=== PATIENT | male | born 1940 | race Caucasian/White ===

== ENCOUNTER 2016-12-28 15:48 | Emergency (ER) | payer MEDICARE ==
[~2016-12-28] VITALS: Ht 170.2 cm; Wt 80.0 kg
[~2016-12-28 15:48] MED LIST: BAYER LOW81 MG PO; CIPRO XR500 M1 OR; COZAAR100 MG PO; DICLOFENAC50 MG PO; DILAUDID2 MG PO; LIPITOR80 MG PO; LORTAB 7.57.5 MG OR; LORTAB 7.57.5 MG PO; METFORMIN1000 MG PO; METFORMIN850 MG PO; METOPROLOL100 M1 PO; METOPROLOL50 M1 PO; NAPROSYN500 MG PO; PLAVIX75 MG PO
[2016-12-28 16:16] LABS: HEMATOCRIT 40.9 % (39.0-50.0); HEMOGLOBIN 14.1 g/dl (14.0-18.0); IMMATURE GRANULOCYTES 0.3 % (0.0-1.0); MEAN CELL VOLUME 92.7 fL CALC (80.0-100.0); MEAN CORPUSCULAR HGB CONC 34.5 g/L CALC (32.0-36.0); NEUT# 5.65 thou/uL (1.82-7.42); RED BLOOD COUNT 4.41 mill/uL (4.70-6.10)
[2016-12-28 16:33] LABS: ALBUMIN 4.3 g/dL (3.2-5.0); ALKALINE PHOSPHATASE 120 u/l (38-126); ANION GAP 19 (6-22 (CALC)); BILIRUBIN, TOTAL 0.4 mg/dL (0.0-1.4); BUN 18 mg/dL (8-23); BUN/CREATININE RATIO 17 (12-20 (CALC)); CALCIUM 9.9 mg/dL (8.4-10.2); CARBON DIOXIDE 23 mmol/l (22-30); CHLORIDE 104 mmol/l (95-108); CREATININE 1.1 mg/dL (0.7-1.3); GFR > 60 ML/MIN (>=60 (CALC)); GFR FOR AFR.AMER. > 60 ML/MIN (>=60 (CALC)); GLUCOSE 225 mg/dL (82-115); POTASSIUM 4.1 mmol/l (3.5-5.1); SGOT/AST 44 u/l (19-48); SGPT/ALT 32 u/l (11-66); SODIUM 141 mmol/l (137-146); TOTAL PROTEIN 7.6 g/dL (6.3-8.2)
[2016-12-28 16:44] LABS: MYOGLOBIN 64 ng/mL (0 - 121)
[2016-12-28] MEDS ORDERED: AMLODIPINE5 MG PO (17:39)
[2016-12-28 19:09] VITALS: BP 123/61
== END 2016-12-28 18:50 | disposition short-term general hospital (02) ==
LOC: ED 15:48
PROVIDERS: Emergency Medicine
DX: I21.4 Non-ST elevation (NSTEMI) myocardial infarction (principal); I25.10 Atherosclerotic heart disease of native coronary artery without angina pectoris; I10 Essential (primary) hypertension; Z95.5 Presence of coronary angioplasty implant and graft
CPT/HCPCS: J1650

== ENCOUNTER → 2018-11-15 | Outpatient (REF) | payer MEDICARE ==
[~2018-11-15] MED LIST changes: +AMLODIPINE5 MG PO
[2018-11-15 09:33] LABS: ANION GAP 14 (6-22 (CALC)); BUN 17 mg/dL (8-23); BUN/CREATININE RATIO 21 (12-20 (CALC)); CARBON DIOXIDE 26 mmol/l (22-30); CHLORIDE 105 mmol/l (95-108); CREATININE 0.8 mg/dL (0.7-1.3); GFR > 60 ML/MIN (>=60 (CALC)); GFR FOR AFR.AMER. > 60 ML/MIN (>=60 (CALC)); POTASSIUM 4.5 mmol/l (3.5-5.1); SODIUM 140 mmol/l (137-146)
== END | disposition home or self-care (01) ==
LOC: LAB 08:30
PROVIDERS: ATTEND Internal Medicine
DX: E11.42 Type 2 diabetes mellitus with diabetic polyneuropathy (principal)

== ENCOUNTER 2020-04-01 05:51 | Observation (INO) | payer MEDICARE ==
[~2020-04-01] VITALS: Ht 170.2 cm; Wt 77.2 kg
--- NOTE | 2020-04-01 05:51 | NUR ---
PATIENT TO ROOM 13 VIA WHEELCHAIR. PATIENT STATES INTERMITTENT CHEST PAIN SINCE 1800 YESTERDAY. STATES TOOK TWO NTG AT 0000, AND 0200 WITH NO RELIEF. STATES NO PAIN AT PRESENT. STATES AT WORST PAIN WAS A 7 ON 1-10 PAIN SCALE. UNDRESSED INTO A GOWN, EKG COMPLETED. PATIENT PLACED ON MONITOR AND TRIAGE COMPLETED AT BEDSIDE.
--- NOTE | 2020-04-01 06:08 | NUR ---
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
[2020-04-01 06:17] LABS: HEMATOCRIT 40.4 % (39.0-50.0); HEMOGLOBIN 13.4 g/dl (14.0-18.0); IMMATURE GRANULOCYTES 0.3 % (0.0-5.0); MEAN CELL VOLUME 93.3 fL CALC (80.0-100.0); MEAN CORPUSCULAR HGB 30.9 pG CALC (26.0-32.0); MEAN CORPUSCULAR HGB CONC 33.2 g/dL CAL (32.0-36.0); NEUT# 3.24 thou/uL (1.82-7.42); RED BLOOD COUNT 4.33 mill/uL (4.70-6.10); RED CELL DISTRI WIDTH 12.7 % (11.5-15.5)
[2020-04-01] MEDS ORDERED: ASPIRIN ADULT L81 MG PO (06:27)
[2020-04-01 06:29] LABS: ALBUMIN 4.3 g/dL (3.2-5.0); ALKALINE PHOSPHATASE 86 u/l (38-126); ANION GAP 10 (6-22 (CALC)); BILIRUBIN, TOTAL 0.4 mg/dL (0.0-1.4); BUN 19 mg/dL (8-23); BUN/CREATININE RATIO 25 (12-20 (CALC)); CARBON DIOXIDE 21 mmol/l (22-30); CHLORIDE 108 mmol/l (95-108); CREATININE 0.8 mg/dL (0.7-1.3); GFR > 60 ML/MIN (>=60 (CALC)); GFR FOR AFR.AMER. > 60 ML/MIN (>=60 (CALC)); POTASSIUM 4.2 mmol/l (3.5-5.1); SGOT/AST 27 u/l (19-48); SODIUM 135 mmol/l (137-146); TOTAL PROTEIN 7.3 g/dL (6.3-8.2)
--- NOTE | 2020-04-01 07:00 | NUR ---
RECEIVED REPORT FROM CHING RN. PT RESTING ON STRETCHER, AT BEDSIDE. DENIES ANY NEEDS AT THIS TIME.
[2020-04-01 08:00] VITALS: BP 143/86
--- NOTE | 2020-04-01 09:20 | NUR ---
PT C/O SHOOTING PAIN ACROSS MID CHEST 01/01 THAT LASTED LESS THAN ONE MINUTE. STATES RESOLVED AT THIS TIME. VSS. REPEAT EKG PERFORMED AND SCANNED TO RECORD SPOKE WITH WILLIS DIAZ APRN, NEW ORDERS RECIEVED AND PRIMARY NURSE UPDATED.
--- NOTE | 2020-04-01 10:08 | NUR ---
LAB AT BEDSIDE. PT DENIES CHEST PAIN AT THIS TIME. WILL CONTINUE TO MONITOR.
--- NOTE | 2020-04-01 11:13 | NUR ---
PT note Patient is screened for intervention and it does not appear he has any PT needs at this time. He may benefit from outpatient cariopulmonary rehab on DC if MD agrees
--- NOTE | 2020-04-01 11:41 | NUR ---
AMBULATED TO BATHROOM WITH STEADY GAIT. DENIES CHEST PAIN AT THIS TIME.
[2020-04-01 12:00] VITALS: BP 128/64
--- NOTE | 2020-04-01 12:15 | NUR ---
DR CAMPOS AT BEDSIDE
--- NOTE | 2020-04-01 12:17 | NUR ---
DR CAMPOS AT BEDSIDE. NEW ORDERS RECEIVED.
--- NOTE | 2020-04-01 14:45 | NUR ---
Discharge instructions given. Patient verbalizes understanding of same. Discharged in stable condition via Ambulatory to Home with spouse. All belongings sent with pt. PT AND SPOUSE AMBULATED OUT OF ER WITH STEADY GAIT.
--- NOTE | 2020-04-01 15:20 | NUR ---
PT TRANSPORTED TO ICU WITH PERMIT SPECIALIST IN PLACE; RT AT BEDSIDE; REPORT GIVEN TO LASHAE TRAMMELL
== END 2020-04-01 14:45 | disposition home or self-care (01) ==
LOC: ED 05:51 → ED-I 06:33 → ED 06:45 → ED-I 06:46
PROVIDERS: Family Medicine; ADMIT Internal Medicine; ATTEND Internal Medicine
DX: R07.9 Chest pain, unspecified (principal); I25.10 Atherosclerotic heart disease of native coronary artery without angina pectoris; E11.9 Type 2 diabetes mellitus without complications; I10 Essential (primary) hypertension; Z95.5 Presence of coronary angioplasty implant and graft; Z79.84 Long term (current) use of oral hypoglycemic drugs; Z79.02 Long term (current) use of antithrombotics/antiplatelets; Z79.82 Long term (current) use of aspirin; Z20.828 Contact with and (suspected) exposure to other viral communicable diseases

== ENCOUNTER 2022-09-27 11:05 | Emergency (ER) | payer MEDICARE ==
[~2022-09-27] VITALS: Ht 167.6 cm; Wt 69.2 kg
[~2022-09-27 11:05] MED LIST changes: +ASPIRIN ADULT L81 MG PO; +ATORVASTATIN CA80 MG PO; +LIPITOR10 M1 PO; +NORVASC5 M1 PO; +TRAMADOL HCL50 MG PO
[2022-09-27 13:08] LABS: URINE BILIRUBIN - DIPSTICK NEGATIVE (NEGATIVE); URINE BLOOD DIPSTICK NEGATIVE (NEGATIVE); URINE COLOR YELLOW; URINE GLUCOSE - DIPSTICK NEGATIVE (NEGATIVE); URINE KETONE NEGATIVE (NEGATIVE); URINE LEUK ESTERASE NEGATIVE (NEGATIVE); URINE PH 5.5 (4.5-8.0); URINE PROTEIN - DIPSTICK NEGATIVE (NEG-TRACE); URINE UROBILINOGEN - DIPSTICK 0.2 E.U./dL (0.2)
[2022-09-27 13:09] LABS: URINE NITRITE - DIPSTICK NEGATIVE (Negative)
[2022-09-27 13:11] LABS: BASO% 0.5 % (0-3); EOS% 0.8 % (0-8); HEMATOCRIT 38.3 % (39.0-50.0); IMMATURE GRANULOCYTES 0.3 % (0.0-5.0); LYMPH% 26.4 % (15-41); MEAN CORPUSCULAR HGB 32.3 pG CALC (26.0-32.0); MEAN CORPUSCULAR HGB CONC 33.9 g/dL CAL (32.0-36.0); MONO% 9.3 % (2-13); NEUT# 3.75 thou/uL (1.82-7.42); NEUT% 62.7 % (42-76); RED BLOOD COUNT 4.03 mill/uL (4.70-6.10); RED CELL DISTRI WIDTH 12.7 % (11.5-15.5)
[2022-09-27 13:22] LABS: PROTHROMBIN TIME 10.4 SECONDS (9.0-12.5)
[2022-09-27 13:29] LABS: ALBUMIN 4.1 g/dL (3.2-5.0); ALKALINE PHOSPHATASE 87 u/l (38-126); ANION GAP 10 (6-22 (CALC)); BILIRUBIN, TOTAL 0.6 mg/dL (0.0-1.4); BUN 19 mg/dL (8-23); BUN/CREATININE RATIO 18 (12-20 (CALC)); CARBON DIOXIDE 28 mmol/l (22-30); CHLORIDE 104 mmol/l (95-108); GFR FOR AFR.AMER. > 60 ML/MIN (>=60 (CALC)); GFR OTHER RACES > 60 ML/MIN (>=60 (CALC)); POTASSIUM 4.9 mmol/l (3.5-5.1); SGOT/AST 22 u/l (19-48); SODIUM 137 mmol/l (137-146); TOTAL PROTEIN 6.9 g/dL (6.3-8.2)
[2022-09-27 14:01] VITALS: BP 170/85
[2022-09-27 14:30] VITALS: BP 177/88
[2022-09-27 16:01] VITALS: BP 154/71
[2022-09-27] MEDS ORDERED: KEFLEX500 MG PO (16:37)
[2022-09-27] MEDS ORDERED: TAMSULOSIN0.4 MG PO (16:37)
[2022-09-27 17:35] VITALS: BP 154/71
== END 2022-09-27 17:45 | disposition home or self-care (01) ==
LOC: ED 11:05
PROVIDERS: Nurse Practitioner
PROC: 0T9B70Z Drainage of Bladder with Drainage Device, Via Natural or Artificial Opening (ICD-10-PCS; principal; 2022-09-27)
DX: N40.1 Benign prostatic hyperplasia with lower urinary tract symptoms (principal); R33.8 Other retention of urine; S22.41XA Multiple fractures of ribs, right side, initial encounter for closed fracture; N20.1 Calculus of ureter; F17.200 Nicotine dependence, unspecified, uncomplicated; W01.0XXA Fall on same level from slipping, tripping and stumbling without subsequent striking against object, initial encounter; Z87.442 Personal history of urinary calculi
CPT/HCPCS: Q9967

== ENCOUNTER 2022-10-02 11:11 | Emergency (ER) | payer MEDICARE ==
[2022-10-02] VITALS (20 sets, daily range): BP systolic 122–158; BP diastolic 64–78
[~2022-10-02] VITALS: Ht 167.6 cm; Wt 80.0 kg
[~2022-10-02 11:11] MED LIST changes: +KEFLEX500 MG PO; +TAMSULOSIN0.4 MG PO
[2022-10-02 13:04] LABS: BASO% 0.2 % (0-3); EOS% 0.9 % (0-8); HEMATOCRIT 38.1 % (39.0-50.0); IMMATURE GRANULOCYTES 0.5 % (0.0-5.0); LYMPH% 21.2 % (15-41); MEAN CELL VOLUME 96.9 fL CALC (80.0-100.0); MEAN CORPUSCULAR HGB 33.1 pG CALC (26.0-32.0); MEAN CORPUSCULAR HGB CONC 34.1 g/dL CAL (32.0-36.0); MONO% 9.1 % (2-13); NEUT# 4.51 thou/uL (1.82-7.42); NEUT% 68.1 % (42-76); RED BLOOD COUNT 3.93 mill/uL (4.70-6.10); RED CELL DISTRI WIDTH 12.5 % (11.5-15.5)
[2022-10-02 13:07] LABS: URINE BILIRUBIN - DIPSTICK NEGATIVE (NEGATIVE); URINE BLOOD DIPSTICK LARGE (NEGATIVE); URINE COLOR YELLOW; URINE GLUCOSE - DIPSTICK NEGATIVE (NEGATIVE); URINE KETONE NEGATIVE (NEGATIVE); URINE LEUK ESTERASE NEGATIVE (NEGATIVE); URINE PROTEIN - DIPSTICK NEGATIVE (NEG-TRACE); URINE UROBILINOGEN - DIPSTICK 0.2 E.U./dL (0.2)
[2022-10-02 13:09] LABS: URINE NITRITE - DIPSTICK NEGATIVE (Negative)
[2022-10-02 13:13] LABS: ALBUMIN 3.8 g/dL (3.2-5.0); ALKALINE PHOSPHATASE 98 u/l (38-126); ANION GAP 12 (6-22 (CALC)); BILIRUBIN, TOTAL 0.4 mg/dL (0.0-1.4); BUN 13 mg/dL (8-23); BUN/CREATININE RATIO 13 (12-20 (CALC)); CARBON DIOXIDE 25 mmol/l (22-30); CHLORIDE 102 mmol/l (95-108); GFR FOR AFR.AMER. > 60 ML/MIN (>=60 (CALC)); GFR OTHER RACES > 60 ML/MIN (>=60 (CALC)); POTASSIUM 4.5 mmol/l (3.5-5.1); SGOT/AST 24 u/l (19-48); SODIUM 135 mmol/l (137-146); TOTAL PROTEIN 6.6 g/dL (6.3-8.2)
[2022-10-02 13:19] LABS: URINE WBC 0-2 WBC/hpf (0-5)
== END 2022-10-02 17:24 | disposition home or self-care (01) ==
LOC: ED 11:11
PROVIDERS: Family Medicine
DX: R53.1 Weakness (principal); R19.7 Diarrhea, unspecified; Z46.6 Encounter for fitting and adjustment of urinary device; Z20.822 Contact with and (suspected) exposure to COVID-19

== ENCOUNTER 2024-06-24 10:34 | Emergency (ER) | payer MEDICARE ==
[~2024-06-24] VITALS: Ht 167.6 cm; Wt 68.0 kg
[2024-06-24] VITALS (7 sets, daily range): BP systolic 117–141; BP diastolic 60–69
[2024-06-24] MEDS ORDERED: KETOROLAC TROMETHAMINE 30 MG/ML SDV IM ONE (11:35)
[2024-06-24] MEDS ORDERED: TRAMADOL HYDROC50 M1 PO (13:06)
[2024-06-24] MEDS ORDERED: MOTRIN400 MG/TAB PO (13:06)
== END 2024-06-24 14:09 | disposition home or self-care (01) ==
LOC: ED 10:34
DX: S22.080A Wedge compression fracture of T11-T12 vertebra, initial encounter for closed fracture (principal); W01.0XXA Fall on same level from slipping, tripping and stumbling without subsequent striking against object, initial encounter; Y92.009 Unspecified place in unspecified non-institutional (private) residence as the place of occurrence of the external cause; Z72.0 Tobacco use